=== PATIENT | male | born 1995 | race Two or more races ===

== ENCOUNTER 2025-01-23 17:08 | Emergency (ER) | payer MEDICAID ==
[~2025-01-23] VITALS: Ht 167.6 cm; Wt 75.0 kg
[2025-01-23] MEDS: BACITRACIN 0.9 GM PACKET OINTMENT TP ONE (17:57)
[2025-01-23] MEDS: PERTUSS(ACELL),DIPH,TET/PF 0.5 ML SYRINGE [ADULT] IM. ONE (18:06)
[2025-01-23 18:08] VITALS: BP 125/80; PULSE 64; RESP 18; TEMP 97.9; O2SAT 99
== END 2025-01-23 18:13 | disposition home or self-care (01) ==
LOC: EMS 17:08
DX: S00.01XA Abrasion of scalp, initial encounter (principal); F12.90 Cannabis use, unspecified, uncomplicated; X58.XXXA Exposure to other specified factors, initial encounter; Y93.89 Activity, other specified; Y92.89 Other specified places as the place of occurrence of the external cause; Y99.8 Other external cause status
CPT/HCPCS: 90471; 90715; 99283